=== PATIENT | female | born 1970 ===

== ENCOUNTER → 2018-04-05 20:54 | Outpatient (REF) | payer OTHER, SELFPAY ==
[2018-04-05 22:45] LABS: Ferritin 90.6 ng/mL (6.27-137)
[2018-04-08 12:24] LABS: Sex Hormone Binding Globulin 165 nmol/L (17-124)
[2018-04-08 21:14] LABS: Estrogen 116.8 pg/mL
[2018-04-09 14:25] LABS: Dehydroepiandrosterone Sulfate 49 mcg/dL (19-231)
[2018-04-09 16:38] LABS: Progesterone < 0.5 ng/mL
[2018-04-12 12:05] LABS: Testosterone Free 0.5 pg/mL (0.1-6.4); Testosterone Total 13 ng/dL (2-45)
== END ==
LOC: LAB 20:54
PROVIDERS: Visit Provider Naturopath
DX: N95.9 Unspecified menopausal and perimenopausal disorder (principal); Z13.89 Encounter for screening for other disorder; E83.119 Hemochromatosis, unspecified; N39.3 Stress incontinence (female) (male)
CPT/HCPCS: 36415; 82627; 82672; 82728; 84144; 84270; 84402; 84403